=== PATIENT | male | born 1995 | race Caucasian/White ===

== ENCOUNTER 2017-07-29 02:38 | Emergency (ER) | payer BC ==
[2017-07-29 02:41] VITALS: BP 135/76
== END 2017-07-29 03:53 | disposition home or self-care (01) ==
LOC: ED 02:38
DX: S61.214A Laceration without foreign body of right ring finger without damage to nail, initial encounter (principal); X58.XXXA Exposure to other specified factors, initial encounter; Y92.9 Unspecified place or not applicable; Z53.21 Procedure and treatment not carried out due to patient leaving prior to being seen by health care provider
CPT/HCPCS: 99281